=== PATIENT | male | born 1950 | race Caucasian/White ===

== ENCOUNTER → 2018-05-03 | Outpatient (CLI) | payer MEDICARE, BC ==
--- NOTE | 2018-05-10 16:37 | SLEEP ---
[address] [address] SLEEP STUDY REPORT Name: PATRICIA DELA CRUZ Room: [facility]#: [id number] Admission: 05/03/18 Attend Phys: CHICO Feliz Discharge: Date of : 48 Report #: [id number] THIS REPORT FOR: //name// CC: Deshaun Garcia This study has been reviewed in its entirety by a board certified sleep specialist DATE OF SERVICE: 05/04/2018 HOME SLEEP STUDY REFERRING PHYSICIAN: Promise Paredes, family nurse practitioner. DATE OF STUDY: 05/04/2018. The patient is 67 years old, who weighs 235 pounds and is 5 feet 11 inches tall. The patient's Cornell score was 6. The patient underwent home sleep study performed by [facility]. The total recording time was 511 minutes. During that time, the patient had 51 obstructive apneas, 1 mixed apnea, no central apneas and 68 hypopneas. The patient's apnea-hypopnea index was 14 per hour. Supine sleep was not observed. Oximetry study revealed an average oxygen saturation 93% with a lowest of 74%. 39 minutes were spent an oxygen saturation of less than 90% and another 15 minutes were spent in oxygen saturation of less than 85%. Mean heart rate was 70 beats per minute with a maximum 94 beats per minute. IMPRESSION: 1. Mild sleep apnea-hypopnea syndrome at an apnea-hypopnea index of 14 per hour. 2. Nocturnal hypoxia secondary to obstructive sleep apnea. RECOMMENDATIONS: 1. The patient has mild sleep apnea. I would recommend weight loss as the initial form of treatment. 2. If the patient continues to remain symptomatic despite weight loss, then consider either a trial of oral appliance as recommended by the dentist versus a trial of CPAP titration. 3. Avoid [employer] [place] [address] SLEEP STUDY REPORT Name: PATRICIA DELA CRUZ Room: [facility]#: [id number] Admission: 05/03/18 Attend Phys: CHICO Feliz Discharge: Date of : 48 Report #: [id number] 4. Cautioned regarding driving until symptoms of sleep apnea resolve with the above recommendation. <ELECTRONICALLY SIGNED> By: Tang Ng MD 05/10/18 [id number] Ng MD /nt
== END ==
LOC: M.SLEEPLAB 05-02 15:00
DX: G47.33 Obstructive sleep apnea (adult) (pediatric) (principal); G47.19 Other hypersomnia; G47.36 Sleep related hypoventilation in conditions classified elsewhere; R06.83 Snoring; Z68.35 Body mass index [BMI] 35.0-35.9, adult

== ENCOUNTER → 2018-05-24 | Outpatient (CLI) | payer MEDICARE, BC ==
[2018-05-24 16:19] LABS: CALCIUM 10.1 mg/dL (8.5-10.1); CREATININE 1.7 mg/dL (0.6-1.3); POTASSIUM 4.4 mmol/L (3.5-5.1)
== END ==
LOC: M.LAB 15:59
PROVIDERS: Internal Medicine Clinical Cardiac Electrophysiology
DX: I42.8 Other cardiomyopathies (principal); I50.42 Chronic combined systolic (congestive) and diastolic (congestive) heart failure; I47.2 Ventricular tachycardia

== ENCOUNTER → 2018-06-23 | Outpatient (CLI) | payer MEDICARE, BC ==
[2018-06-23 13:44] LABS: HEMATOCRIT 37.5 % (42.0-52.0); HEMOGLOBIN 12.4 gm/dL (14.0-18.0); MCH 29.2 pg (26.0-34.0); MCHC 33.2 g/dL (28.0-37.0); MCV 88.1 fL (80.0-100.0); MPV 8.1 fl. (7.2-11.1); RBC 4.25 mil/uL (4.50-6.00); RDW-CV 14.8 % (10.5-14.5); WBC 7.3 thou/uL (4.0-11.0)
[2018-06-23 14:00] LABS: ALBUMIN 3.7 g/dL (3.4-5.0); CALCIUM 9.3 mg/dL (8.5-10.1); MAGNESIUM 1.8 mg/dL (1.8-2.4); POTASSIUM 4.1 mmol/L (3.5-5.1); TOTAL BILIRUBIN 0.4 mg/dL (<0.1-1.0); TOTAL PROTEIN 7.6 g/dL (6.4-8.2)
== END ==
LOC: M.LAB 13:18
PROVIDERS: Nurse Practitioner
DX: N28.9 Disorder of kidney and ureter, unspecified (principal); I50.21 Acute systolic (congestive) heart failure; G47.62 Sleep related leg cramps; E03.9 Hypothyroidism, unspecified; I42.8 Other cardiomyopathies; R31.0 Gross hematuria; R53.83 Other fatigue; Z79.899 Other long term (current) drug therapy

== ENCOUNTER → 2018-07-24 | Outpatient (CLI) | payer MEDICARE, BC ==
[2018-07-24 12:21] LABS: CALCIUM 9.3 mg/dL (8.5-10.1); POTASSIUM 4.9 mmol/L (3.5-5.1)
== END ==
LOC: M.LAB 11:38
PROVIDERS: Nurse Practitioner
DX: I50.9 Heart failure, unspecified (principal); N28.9 Disorder of kidney and ureter, unspecified

== ENCOUNTER → 2018-08-23 | Outpatient (CLI) | payer MEDICARE, BC ==
[2018-08-23 07:08] LABS: URINE BILIRUBIN NEGATIVE (Negative); URINE BLOOD TRACE (Negative); URINE CLARITY CLEAR; URINE COLOR YELLOW; URINE GLUCOSE-RANDOM NEGATIVE (Negative); URINE KETONES NEGATIVE (Negative); URINE LEUKOCYTES-REFLEX NEGATIVE (Negative); URINE NITRITE-REFLEX NEGATIVE (Negative); URINE PROTEIN 1+ (Negative)
[2018-08-23 07:19] LABS: BACTERIA-REFLEX 1-9 Few /HPF (None Seen); CASTS None Seen /LPF (None Seen); CRYSTALS None Seen /LPF (None Seen); MUCUS 0-3 Light strn/LPF (None Seen); SQUAMOUS 4-10 Moderate /LPF (0-3); URINE RBC 3-10 Few /HPF (0-2); URINE WBC-REFLEX 0-5 Rare /HPF (0-5)
[2018-08-23 07:21] LABS: ABSOLUTE EOSINOPHILS 0.1 thou/uL (0.0-0.7); ABSOLUTE LYMPHOCYTES 1.3 thou/uL (0.8-5.3); ABSOLUTE MONOCYTES 0.5 thou/uL (0.0-1.2); ABSOLUTE NEUTROPHILS 5.1 thou/uL (1.6-8.1); BASOPHILS 0.6 %; HEMATOCRIT 38.6 % (42.0-52.0); HEMOGLOBIN 12.5 gm/dL (14.0-18.0); LYMPHOCYTES 18.8 %; MCH 29.2 pg (26.0-34.0); MCHC 32.5 g/dL (28.0-37.0); MPV 8.7 fl. (7.2-11.1); NUCLEATED RBCS 0 /100WBC; PLATELET COUNT* 247 thou/uL (150-400); POLYS 72.6 %; RBC 4.28 mil/uL (4.50-6.00)
[2018-08-23 07:39] LABS: ALBUMIN 3.6 g/dL (3.4-5.0); CALCIUM 8.9 mg/dL (8.5-10.1); CREATININE 1.8 mg/dL (0.6-1.3); POTASSIUM 4.9 mmol/L (3.5-5.1); TOTAL BILIRUBIN 0.6 mg/dL (<0.1-1.0)
== END ==
LOC: M.LAB 06:07
PROVIDERS: Nurse Practitioner
DX: N17.9 Acute kidney failure, unspecified (principal); I50.33 Acute on chronic diastolic (congestive) heart failure; R06.02 Shortness of breath; R82.90 Unspecified abnormal findings in urine

== ENCOUNTER → 2018-09-29 | Outpatient (CLI) | payer MEDICARE, BC ==
[2018-09-29 14:15] LABS: CALCIUM 9.1 mg/dL (8.5-10.1)
== END ==
LOC: M.LAB 13:25
PROVIDERS: Internal Medicine Clinical Cardiac Electrophysiology
DX: I13.0 Hypertensive heart and chronic kidney disease with heart failure and stage 1 through stage 4 chronic kidney disease, or unspecified chronic kidney disease (principal); I50.23 Acute on chronic systolic (congestive) heart failure; N18.9 Chronic kidney disease, unspecified; I47.2 Ventricular tachycardia; I49.3 Ventricular premature depolarization; Z79.899 Other long term (current) drug therapy

== ENCOUNTER → 2018-10-11 | Outpatient (CLI) | payer MEDICARE, BC ==
[2018-10-11 17:22] LABS: URINE BILIRUBIN NEGATIVE (Negative); URINE BLOOD 3+ (Negative); URINE CLARITY CLEAR; URINE COLOR YELLOW; URINE GLUCOSE-RANDOM NEGATIVE (Negative); URINE KETONES NEGATIVE (Negative); URINE LEUKOCYTES 1+ (Negative); URINE NITRITE NEGATIVE (Negative); URINE PROTEIN NEGATIVE (Negative); URINE SPECIFIC GRAVITY 1.015 (1.005-1.030); URINE UROBILINOGEN 0.2 E.U./dl (0.2-1.0)
[2018-10-11 17:33] LABS: BACTERIA 1-9 Few /HPF (None Seen); CASTS None Seen /LPF (None Seen); MUCUS 0-3 Light strn/LPF (None Seen); SQUAMOUS NONE SEEN /LPF (0-3); URINE RBC None Seen /HPF (0-2); URINE WBC 0-5 Rare /HPF (0-5)
[2018-10-11 17:34] LABS: CRYSTALS None Seen /LPF (None Seen)
[2018-10-11 17:35] LABS: ABSOLUTE EOSINOPHILS 0.1 thou/uL (0.0-0.7); ABSOLUTE LYMPHOCYTES 1.2 thou/uL (0.8-5.3); ABSOLUTE MONOCYTES 0.7 thou/uL (0.0-1.2); ABSOLUTE NEUTROPHILS 6.5 thou/uL (1.6-8.1); BASOPHILS 0.5 %; EOSINOPHILS 0.9 %; HEMATOCRIT 39.4 % (42.0-52.0); LYMPHOCYTES 13.9 %; MCH 29.2 pg (26.0-34.0); MCV 88.4 fL (80.0-100.0); MONOCYTES 8.4 %; MPV 8.6 fl. (7.2-11.1); NUCLEATED RBCS 0 /100WBC; PLATELET COUNT* 252 thou/uL (150-400); POLYS 76.3 %; RBC 4.46 mil/uL (4.50-6.00); RDW-CV 14.7 % (10.5-14.5); WBC 8.5 thou/uL (4.0-11.0)
[2018-10-11 17:44] LABS: INR 1.2; PROTIME 12.4 Seconds (9.20-11.50)
[2018-10-11 17:46] LABS: CREATININE 2.6 mg/dL (0.6-1.3); POTASSIUM 4.8 mmol/L (3.5-5.1)
== END ==
LOC: M.LAB 17:00
PROVIDERS: Internal Medicine Clinical Cardiac Electrophysiology
DX: Z01.818 Encounter for other preprocedural examination (principal); I11.0 Hypertensive heart disease with heart failure; I50.42 Chronic combined systolic (congestive) and diastolic (congestive) heart failure; R35.0 Frequency of micturition; I42.8 Other cardiomyopathies; I47.2 Ventricular tachycardia; Z79.899 Other long term (current) drug therapy

== ENCOUNTER → 2018-10-27 | Outpatient (CLI) | payer MEDICARE, BC ==
[2018-10-27 15:49] LABS: URINE BILIRUBIN NEGATIVE (Negative); URINE BLOOD 3+ (Negative); URINE CLARITY CLEAR; URINE COLOR YELLOW; URINE GLUCOSE-RANDOM NEGATIVE (Negative); URINE KETONES NEGATIVE (Negative); URINE LEUKOCYTES 2+ (Negative); URINE NITRITE NEGATIVE (Negative); URINE PROTEIN 1+ (Negative); URINE SPECIFIC GRAVITY 1.015 (1.005-1.030); URINE UROBILINOGEN 0.2 E.U./dl (0.2-1.0)
[2018-10-27 15:58] LABS: BACTERIA 1-9 Few /HPF (None Seen); CASTS None Seen /LPF (None Seen); CRYSTALS None Seen /LPF (None Seen); SQUAMOUS NONE SEEN /LPF (0-3); URINE RBC 0-2 Rare /HPF (0-2); URINE WBC 0-5 Rare /HPF (0-5)
== END ==
LOC: M.LAB 15:08
PROVIDERS: Nurse Practitioner
DX: R30.0 Dysuria (principal); R35.0 Frequency of micturition

== ENCOUNTER → 2018-11-02 | Outpatient (CLI) | payer MEDICARE, BC ==
[2018-11-02 10:28] LABS: ABSOLUTE BASOPHILS 0.1 thou/uL (0.0-0.2); ABSOLUTE EOSINOPHILS 0.1 thou/uL (0.0-0.7); ABSOLUTE LYMPHOCYTES 1.4 thou/uL (0.8-5.3); ABSOLUTE MONOCYTES 0.5 thou/uL (0.0-1.2); ABSOLUTE NEUTROPHILS 4.6 thou/uL (1.6-8.1); BASOPHILS 1.1 %; EOSINOPHILS 1.3 %; HEMATOCRIT 35.7 % (42.0-52.0); HEMOGLOBIN 11.7 gm/dL (14.0-18.0); LYMPHOCYTES 21.4 %; MCH 28.4 pg (26.0-34.0); MCHC 32.7 g/dL (28.0-37.0); MCV 86.6 fL (80.0-100.0); MONOCYTES 8.1 %; MPV 8.1 fl. (7.2-11.1); NUCLEATED RBCS 0 /100WBC; PLATELET COUNT* 254 thou/uL (150-400); POLYS 68.1 %; RBC 4.12 mil/uL (4.50-6.00); RDW-CV 15.3 % (10.5-14.5); WBC 6.7 thou/uL (4.0-11.0)
[2018-11-02 10:51] LABS: CREATININE 2.2 mg/dL (0.6-1.3); POTASSIUM 4.5 mmol/L (3.5-5.1)
[2018-11-02 10:53] LABS: CALCIUM 8.8 mg/dL (8.5-10.1); CREATININE 2.2 mg/dL (0.6-1.3); PHOSPHORUS* 4.1 mg/dL (2.5-4.9)
[2018-11-02 17:12] LABS: IgA 216 mg/dL (61-437); IgG 1149 mg/dL (700-1600); IgM 47 mg/dL (20-172)
[2018-11-06 16:07] LABS: GLOBULIN TOTAL 3.7 g/dL (2.2-3.9); M-SPIKE Not Observed g/dL (Not Observed)
== END ==
LOC: M.LAB 09:58
PROVIDERS: Internal Medicine Nephrology
DX: N17.9 Acute kidney failure, unspecified (principal); N18.3 Chronic kidney disease, stage 3 (moderate)

== ENCOUNTER → 2018-12-15 | Outpatient (CLI) | payer MEDICARE, BC ==
[2018-12-15 14:42] LABS: ALBUMIN 3.6 g/dL (3.4-5.0); CALCIUM 8.9 mg/dL (8.5-10.1); CREATININE 2.2 mg/dL (0.6-1.3); POTASSIUM 4.4 mmol/L (3.5-5.1); TOTAL BILIRUBIN 0.3 mg/dL (<0.1-1.0); TOTAL PROTEIN 7.6 g/dL (6.4-8.2)
== END ==
LOC: M.LAB 14:05
PROVIDERS: Nurse Practitioner
DX: E11.22 Type 2 diabetes mellitus with diabetic chronic kidney disease (principal); I13.0 Hypertensive heart and chronic kidney disease with heart failure and stage 1 through stage 4 chronic kidney disease, or unspecified chronic kidney disease; N18.9 Chronic kidney disease, unspecified; I50.9 Heart failure, unspecified; G62.9 Polyneuropathy, unspecified

== ENCOUNTER → 2019-01-09 | Outpatient (CLI) | payer MEDICARE, BC ==
[2019-01-09 09:13] LABS: ANION GAP 10 mmol/L (7-16); BUN 43 mg/dL (7-18); CALCIUM 9.2 mg/dL (8.5-10.1); CHLORIDE 103 mmol/L (98-107); CHOLESTEROL 189 mg/dL (<200); CO2 26 mmol/L (21-32); CREATININE 2.3 mg/dL (0.6-1.3); GLUCOSE 149 mg/dL (70-99); HDL CHOLESTEROL 8 mg/dL (>40); LDL CHOLESTEROL 124 mg/dL (<100); POTASSIUM 4.4 mmol/L (3.5-5.1); SERUM ASSESSMENT Clear; SODIUM 139 mmol/L (136-145); TC:HDL 23.6 Ratio (Not establshd); TRIGLYCERIDE 287 mg/dL (<150); VLDL 57 mg/dL (<40)
== END ==
LOC: M.LAB 08:16
PROVIDERS: Nurse Practitioner
DX: I15.2 Hypertension secondary to endocrine disorders (principal); E27.9 Disorder of adrenal gland, unspecified; R25.2 Cramp and spasm; N18.9 Chronic kidney disease, unspecified; D35.00 Benign neoplasm of unspecified adrenal gland; E78.5 Hyperlipidemia, unspecified

== ENCOUNTER → 2019-02-20 | Outpatient (CLI) | payer MEDICARE, BC ==
[2019-02-20 14:52] LABS: ABSOLUTE BASOPHILS 0.1 thou/uL (0.0-0.2); ABSOLUTE EOSINOPHILS 0.1 thou/uL (0.0-0.7); ABSOLUTE LYMPHOCYTES 1.4 thou/uL (0.8-5.3); ABSOLUTE MONOCYTES 0.7 thou/uL (0.0-1.2); ABSOLUTE NEUTROPHILS 5.2 thou/uL (1.6-8.1); BASOPHILS 0.9 %; EOSINOPHILS 1.4 %; HEMATOCRIT 37.8 % (42.0-52.0); HEMOGLOBIN 12.4 gm/dL (14.0-18.0); LYMPHOCYTES 18.7 %; MCH 28.6 pg (26.0-34.0); MCHC 32.7 g/dL (28.0-37.0); MCV 87.5 fL (80.0-100.0); MONOCYTES 9.1 %; MPV 7.8 fl. (7.2-11.1); NUCLEATED RBCS 0 /100WBC; PLATELET COUNT* 236 thou/uL (150-400); POLYS 69.9 %; RBC 4.32 mil/uL (4.50-6.00); WBC 7.4 thou/uL (4.0-11.0)
[2019-02-20 15:03] LABS: CALCIUM 9.7 mg/dL (8.5-10.1); CREATININE 2.1 mg/dL (0.6-1.3); PHOSPHORUS* 4.3 mg/dL (2.5-4.9); POTASSIUM 4.5 mmol/L (3.5-5.1)
[2019-02-20 15:19] LABS: CALCIUM 9.3 mg/dL (8.5-10.1); CREATININE 2.2 mg/dL (0.6-1.3); PHOSPHORUS* 4.4 mg/dL (2.5-4.9)
== END ==
LOC: M.LAB 14:13
PROVIDERS: Internal Medicine Nephrology
DX: I12.9 Hypertensive chronic kidney disease with stage 1 through stage 4 chronic kidney disease, or unspecified chronic kidney disease (principal); N18.3 Chronic kidney disease, stage 3 (moderate); E78.5 Hyperlipidemia, unspecified

== ENCOUNTER → 2021-03-13 | Outpatient (CLI) | payer MEDICARE, BC ==
[2021-03-13 16:55] LABS: ABSOLUTE EOSINOPHILS 0.2 thou/uL (0.0-0.7); ABSOLUTE LYMPHOCYTES 1.3 thou/uL (0.8-5.3); ABSOLUTE MONOCYTES 0.4 thou/uL (0.0-1.2); ABSOLUTE NEUTROPHILS 2.9 thou/uL (1.6-8.1); BASOPHILS 0.6 %; EOSINOPHILS 3.8 %; HEMATOCRIT 30.7 % (42.0-52.0); HEMOGLOBIN 10.6 gm/dL (14.0-18.0); LYMPHOCYTES 26.4 %; MCH 31.8 pg (26.0-34.0); MCHC 34.5 g/dL (28.0-37.0); MCV 92.2 fL (80.0-100.0); MONOCYTES 7.8 %; MPV 7.2 fl. (7.2-11.1); NUCLEATED RBCS 0 /100WBC; PLATELET COUNT* 236 thou/uL (150-400); POLYS 61.4 %; RBC 3.33 mil/uL (4.50-6.00); RDW-CV 15.2 % (10.5-14.5); WBC 4.8 thou/uL (4.0-11.0)
[2021-03-13 17:11] LABS: CALCIUM 8.7 mg/dL (8.5-10.1); CREATININE 1.9 mg/dL (0.6-1.3); POTASSIUM 3.6 mmol/L (3.5-5.1)
[2021-03-13 17:39] LABS: % SATURATION 14 % (20-39); IRON 55 ug/dL (50-175)
== END ==
LOC: M.LAB 16:20
PROVIDERS: ATTEND Internal Medicine Nephrology
DX: N18.30 Chronic kidney disease, stage 3 unspecified (principal)